=== PATIENT | male | born 1990 | race Caucasian/White ===

== ENCOUNTER 2024-03-21 10:13 | Emergency (ER) | payer OTHER, MEDICAID, SELFPAY ==
--- NOTE | 2024-03-21 10:54 | ED.GENMED ---
History of Present Illness
General
Chief Complaint: Bowel Problem
Source: other (Staff)
Exam Limitations: none
Time Seen by Provider: 03/21/24 10:46
History of Present Illness
History of Present Illness:
Patient is a 33-year-old male with developmental delay from [facility] presents with staff for constipation. Patient presents with 2 staff providers who reports they are involved in patient's care and that he has not moved his
bowels in 9 days. They have tried MiraLAX twice without relief. They report he is eating / drinking and not vomiting
Past History
Past History
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
Review of Systems
Review of Systems
Allergies reviewed?: Yes
Other source history: other (staff from [facility] )
All Other Systems: ROS reviewed and negative except as documented in HPI and ROS
Constitutional: Denies fever
ABD/GI: Reports constipated; Denies vomiting, diarrhea or anorexia
Musculoskeletal: Reports no symptoms
Skin: Reports no symptoms
Neurological: Reports no symptoms
Psychiatric: Reports no symptoms
Phy Exam
General Physical Exam
General Presentation: no apparent distress
General age: appears stated age
General Skin: warm and dry
General Habitus: normal
General Mental: alert
General Hydration: appears well hydrated
Gastrointestinal Exam
Gastrointestinal Exam: soft and other (soft + BS pt does not grimace on palpation of abdomen )
Neurological Exam
Neurological Exam: alert
Musculoskeletal Exam
Musculoskeletal Exam: full ROM
Skin Exam
Skin Exam: normal color and warm/dry
Psychiatric Exam
Psychiatric Exam: normal mood/affect
Course
Orders/Labs/Results
Orders:
Orders
03/21/24 10:53
Obstruct Series W/PA Chest [CR Obstruct Series W/pa Chest] Urgent
Comment:
Reason For Exam: constipated
Vital Signs
Initial and Last Documented VS:
Initial Vital Signs
Temp Pulse Resp BP Pulse Ox
98.4 F 87 18 116/74 98
03/21/24 15:44 03/21/24 15:44 03/21/24 15:44 03/21/24 15:44 03/21/24 15:44
Last Documented Vital Signs
Temp Pulse Resp BP Pulse Ox
98.4 F 87 18 116/74 98
03/21/24 15:44 03/21/24 15:44 03/21/24 15:44 03/21/24 15:44 03/21/24 15:44
[employer] consulted with Physician
[employer]ter consulted with physician?: Yes
Name of Physician Consulted: Wayne
MDM/Problems Addressed
MDM/Problems Addressed:
33-year-old male with past medical history of developmental delay lives in [facility] facility brought by staff for constipation for the past 8 to 9 days. They have tried several doses of MiraLAX but nothing else. Patient is not vomiting he is
eating and drinking. He presents awake alert he is baseline as per staff and is nontoxic abdomen soft nontender.
X-ray reviewed with radiology. on initial views questionable gas in the right upper quadrant however on repeat lateral view no concern for pneumoperitoneum.
On exam pt is not clinically obstructed, will avoid sedation as pt is non toxic and will avoid unnecessary risks associated with sedation.
I did attempt to call patient's mother Nadine Pittman at [phone].
I did leave voicemail asking for call back. Patient however safe for discharge back to facility recommend increasing MiraLAX to daily increasing water intake as much as possible increasing fresh fruits and vegetables and either pgrh-zos-omuzsoh
black suppositories or Senokot laxatives.
*Critical Care Note
Total Time (30-74mins, 75-104mins- exclusive of procedures): Not Applicable
ED Attending Note
-
Portions of this chart may have been created with voice recognition software.� Occasional wrong word or��sound alike� substitutions may have occurred due to the inherent limitations of voice recognition software.
Discharge Plan
Departure
Patient Disposition: Home (Routine Discharge)
Date of Disposition: 03/21/24
Time of Disposition: 14:45
Patient with high blood pressure during this ER visit?: No
Condition: Fair
Covid-19: Not Applicable
Discharge Problem:
Acute constipation
Instructions: Constipation, Adult (DC)
Prescriptions:
No Action
cephalexin [Keflex] 500 MG capsule
500 mg PO BID Qty: 14 0RF
Referrals:
Harsha Hunt, DO [Family Provider] -
Activity Restrictions/Additional Instructions:
Encourage fluids so patient stays well-hydrated. Increase MiraLAX to daily. You may try ntkh-aur-beukrky Senokot laxatives or Dulcolax suppository.
Follow-up with family doctor next several days and return if any worsening of symptoms if increased pain vomiting or any further concerns.
No clinical signs of obstruction here in the ER.
Interventions
Interventions:
*Risk Screen - Suicide Last Done: 03/21/24 10:33
*General Assessment Last Done: 03/21/24 10:33
*Neglect/Abuse Screening Last Done: 03/21/24 10:33
*ED COVID-19 Vaccine History Last Done: 03/21/24 11:00
VQ-Oqihjr-Mdydqvqewm Assessment Last Done: 03/21/24 11:00
Discharge Date and Time
Print Language: KISWAHILI
[2024-03-21 15:44] VITALS: BP 116/74
== END 2024-03-21 15:45 | disposition home or self-care (01) ==
LOC: EMR 10:13
PROVIDERS: EMERGENCY PHYSICIAN Emergency Medicine; FAMILY PHYSICIAN Internal Medicine
DX: K59.09 Other constipation (principal); R62.50 Unspecified lack of expected normal physiological development in childhood; Q93.88 Other microdeletions
CPT/HCPCS: 99283; 74022